=== PATIENT | male | born 1985 | race Two or more races ===

== ENCOUNTER → 2018-05-29 | Day surgery (SDC) | payer OTHER ==
[~2018-05-29] MED LIST: CATAFLAM50 MG; MOTRIN100 MG PO
== END | disposition home or self-care (01) ==
LOC: ADM 05-27 14:15 → CIR.AMB 06:29
DX: N47.1 Phimosis (principal); Q54.4 Congenital chordee

== ENCOUNTER 2021-05-15 09:05 | Day surgery (SDC) | payer OTHER ==
[~2021-05-15 09:05] MED LIST changes: +ENALAPRIL MALEA10 MG PO
[2021-05-15] MEDS ORDERED: MELOXICAM7.5 MG PO (13:51)
[2021-05-15] MEDS ORDERED: GABAPENTIN400 MG PO (13:51)
== END 2021-05-15 18:10 | disposition home or self-care (01) ==
LOC: CIR.AMB 09:05
PROVIDERS: ATTEND Surgery
DX: N48.6 Induration penis plastica (principal); Z30.2 Encounter for sterilization; Z20.822 Contact with and (suspected) exposure to COVID-19